=== PATIENT | male | born 1970 | race Caucasian/White ===

== ENCOUNTER → 2023-06-01 09:39 | Outpatient (CLI) | payer OTHER, SELFPAY ==
[2023-06-01 10:58] LABS: Add Manual Diff / Slide Review NO; Basophils Absolute Auto 100 /uL (0-100); Basophils Percent Auto 1.1 % (0-2); Eosinophils Absolute Auto 1000 /uL (0-450); Eosinophils Percent Auto 13.3 % (2-4); Hemoglobin 13.9 g/dL (13.5-17.5); Lymphocytes Absolute Auto 2100 /uL (1100-4500); Lymphocytes Percent Auto 29.6 % (25-40); Mean Corpuscular HGB Conc 34.8 % (30-36); Mean Corpuscular Hemoglobin 29.9 PG (26-34); Mean Corpuscular Volume 85.8 fL (80-100); Monocytes Absolute Auto 500 /uL (0-900); Monocytes Percent Auto 6.4 % (3-14); Neutrophils Absolute Auto 3600 /uL (1500-7000); Neutrophils Percent Auto 49.6 % (50-75); Platelet Count 276 X10^3/uL (150-400); Red Blood Cell Count 4.67 X10^6/uL (4.5-5.9); Red Cell Distribution Width 14.1 % (11.6-14.8); White Blood Cell Count 7.2 X10^3/uL (4.5-11.0)
[2023-06-01 11:13] LABS: Alanine Aminotransferase 34 IU/L (<50); Albumin 4.3 g/dL (3.5-5.0); Albumin Globulin Ratio 1.6 (1.0-2.8); Alkaline Phosphatase 61 U/L (38-126); Aspartate Aminotransferase 33 IU/L (17-59); BUN Creatinine Ratio 27.5 (6-22); Bilirubin Total 0.5 mg/dL (0.2-1.3); Blood Urea Nitrogen 28 mg/dL (9-20); Calcium 9.1 mg/dL (8.4-10.2); Carbon Dioxide 30 mmol/L (22-32); Chloride 104 mmol/L (98-107); Cholesterol 209 mg/dL (140-199); Estimated Glomerular Filt Rate > 60 mL/min (>60); Globulin 2.7 g/dL (1.7-4.1); Glucose 93 mg/dL (70-100); HDL Cholesterol 54 mg/dL (40-60); HEMOLYSIS < 15 (0-50); LDL Cholesterol Calculated 133 mg/dL (<100); Potassium 4.6 mmol/L (3.4-5.1); Sodium 140 mmol/L (137-145); Triglycerides 109 mg/dL (35-150)
[2023-06-01 11:47] LABS: Prostate Specific Antigen 1.49 ng/mL (0.10-4.00)
[2023-06-02 06:33] LABS: Labcorp Hemoglobin (Hb) A1c 5.7 % (4.8-5.6)
== END ==
PROVIDERS: Family Provider Internal Medicine; PCP Family Medicine; Referring Provider Family Medicine; Visit Provider Family Medicine
DX: Z00.00 Encounter for general adult medical examination without abnormal findings (principal); J45.909 Unspecified asthma, uncomplicated; Z83.3 Family history of diabetes mellitus
CPT/HCPCS: 36415; 80053; 80061; 83036; 84153; 85025

== ENCOUNTER 2023-10-19 12:38 | Day surgery (SDC) | payer OTHER, SELFPAY ==
[2023-10-19 12:49] VITALS: BP 158/86; PULSE 70; RESP 16; TEMP 36.4; O2SAT 100; BMI 31.0
[2023-10-19] MEDS: LACTATED RINGERS 1,000 ML 150 ML IV (13:02)
--- NOTE | 2023-10-19 14:02 | P.HP_ITS ---
History of Present Illness History of Present Illness Date Patient Seen: 10/19/23 Time Patient Seen: 14:02 Chief complaint: Screening Colonoscopy Narrative: Alfredo is a 53-year-old man who is here for colonoscopy. He has never had 1 before. No family history of colon cancer. [facility] Medical History Asthma (~1995) Borderline hyperlipidemia Chicken pox Family history of diabetes mellitus Fractures (~1983) Mild anemia Pre-diabetes Shoulder pain (~2008) Well adult exam Surgical History Anesthesia Polyp, nasal sinus (~2004) Family History Father Diabetes mellitus Hypertension Mother Mental health problem Brother Congestive heart failure Sarcoidosis Grandfather History of heart disease Grandfather Cancer Diabetes mellitus History of heart disease Social History household members: spouse Smoking Status: Never smoker alcohol intake: current Meds Home Medications and Allergies Home Medications Medication Instructions Recorded Confirmed Type albuterol sulfate 90 mcg/actuation 2 puff inhalation Q4-6H #6.7 grams 06/11/23 10/19/23 Rx aerosol inhaler ciclesonide 80 mcg/actuation 1 puff inhalation BID #6.1 grams 06/11/23 10/19/23 Rx aerosol inhaler (Alvesco) montelukast 10 mg tablet 10 mg PO DAILY #90 tabs 06/12/23 10/19/23 Rx (Singulair) Allergies Allergy/AdvReac Type Severity Reaction Status Date / Time No Known Drug Allergies Allergy Unverified 06/01/23 08:59 Exam Vital Signs (past 8 hours): - 10/19/23 12:49 Temperature 97.5 F L Pulse Rate 70 Respiratory Rate 16 Blood Pressure 158/86 H Pulse Oximetry 100 Oxygen Delivery Method Room Air Oxygen Delivery Method Room Air Const General: healthy appearing Resp Effort & Inspection: normal respiratory effort Assessment & Plan Assessment and plan (1) Colon cancer screening: Status: Acute Plan Alfredo is a 53-year-old man who is here for colonoscopy for colon cancer screening. We reviewed the risks and benefits and he would like to proceed.
--- NOTE | 2023-10-19 15:12 | PM.OP.COLON ---
Operative Date/Time/Diagnoses Date of procedure: 10/19/23 Time of procedure: 15:12 Pre-op diagnosis: Colon cancer screening Post-op diagnosis: same Procedure & Clinicians Study performed: Colonoscopy Same procedure as scheduled: Yes Surgeon: Ezekiel Anders Procedure Notes Procedure in detail: Surgeon: Ezekiel Anders MD Anesthesia: Jorge L Mann CRNA Procedure: The patient was brought to the endoscopy suite, placed in left lateral decubitus position. The patient was connected to monitoring devices. A time-out was performed. Sedation was administered. Once the patient was adequately sedated, a digital rectal exam was performed and was normal. The scope was then inserted and advanced to the cecum where the appendiceal orifice was identified and photographed. The scope was then slowly withdrawn over greater than 6 minutes. The mucosa was thoroughly inspected. No abnormalities were found. The scope was retroflexed in the rectum. No abnormalities were seen. The scope was straightened and removed. The patient was awakened and brought to recovery. Scope withdrawal time: 6 minutes Sedation time: 15 minutes EBL: 0 Findings: Normal colon Post-procedure Recommendations: Colonoscopy in 10 years Disposition: PACU
[2023-10-19 15:14] VITALS: BP 97/65; PULSE 71; RESP 16; O2SAT 98
[2023-10-19 15:19] VITALS: BP 99/59; PULSE 69; RESP 16; TEMP 36.2; O2SAT 98
[2023-10-19 15:24] VITALS: BP 98/66; PULSE 68; RESP 16; TEMP 36.2; O2SAT 98
[2023-10-19 15:28] VITALS: BP 99/66; PULSE 74; RESP 16; TEMP 36.8; O2SAT 98
== END 2023-10-19 15:41 | disposition home or self-care (01) ==
PROVIDERS: Family Provider Internal Medicine; PCP Family Medicine; Referring Provider Surgery; Visit Provider Surgery
PROC: 0DJD8ZZ Inspection of Lower Intestinal Tract, Via Natural or Artificial Opening Endoscopic (ICD-10-PCS; CPT 45378; principal; 2023-10-19 13:45)
DX: Z12.11 Encounter for screening for malignant neoplasm of colon (principal)
CPT/HCPCS: 45378; J2704

== ENCOUNTER → 2024-07-12 07:21 | Outpatient (CLI) | payer OTHER, SELFPAY ==
[2024-07-12 10:32] LABS: HEMOLYSIS < 15 (0-50); Iron 117 ug/dL (49-181)
[2024-07-12 10:37] LABS: Alanine Aminotransferase 24 IU/L (<50); Albumin 4.2 g/dL (3.5-5.0); Albumin Globulin Ratio 1.8 (1.0-2.8); Alkaline Phosphatase 53 U/L (38-126); Aspartate Aminotransferase 30 IU/L (17-59); BUN Creatinine Ratio 25.5 (6-22); Bilirubin Total 0.7 mg/dL (0.2-1.3); Blood Urea Nitrogen 27 mg/dL (9-20); Calcium 9.5 mg/dL (8.4-10.2); Carbon Dioxide 28 mmol/L (22-32); Chloride 104 mmol/L (98-107); Cholesterol 201 mg/dL (140-199); Estimated Glomerular Filt Rate > 60 mL/min (>60); Globulin 2.4 g/dL (1.7-4.1); Glucose 96 mg/dL (70-100); HDL Cholesterol 49 mg/dL (40-60); HEMOLYSIS < 15 (0-50); LDL Cholesterol Calculated 130 mg/dL (<100); Potassium 4.4 mmol/L (3.4-5.1); Sodium 139 mmol/L (137-145); Total Protein 6.6 g/dL (6.3-8.2); Triglycerides 112 mg/dL (35-150)
[2024-07-12 10:38] LABS: Hemoglobin A1C% w Est Avg Glu 5.5 % (4.0-6.0)
[2024-07-12 10:44] LABS: Percent Iron Saturation 37 % (20-50); Total Iron Binding Capacity 319 ug/dL (261-462); Transferrin 249 mg/dL (206-381)
[2024-07-12 11:05] LABS: Prostate Specific Antigen 1.16 ng/mL (0.10-4.00)
[2024-07-12 11:22] LABS: Vitamin B12 642 pg/mL (239-931)
== END ==
PROVIDERS: Family Provider Internal Medicine; PCP Family Medicine; Referring Provider Family Medicine; Visit Provider Family Medicine
DX: Z00.00 Encounter for general adult medical examination without abnormal findings (principal); R73.03 Prediabetes; E78.5 Hyperlipidemia, unspecified; D64.9 Anemia, unspecified
CPT/HCPCS: 36415; 80053; 80061; 82607; 83036; 83540; 83550; 84153

== ENCOUNTER → 2025-07-24 13:57 | Outpatient (CLI) | payer OTHER, SELFPAY ==
[2025-07-24 15:43] LABS: Add Manual Diff / Slide Review NO; Hematocrit 39.6 % (41-53); Hemoglobin 13.6 g/dL (13.5-17.5); Lymphocytes Absolute Auto 2200 /uL (1100-4500); Mean Corpuscular HGB Conc 34.3 % (30-36); Mean Corpuscular Hemoglobin 29.6 PG (26-34); Mean Corpuscular Volume 86.3 fL (80-100); Platelet Count 227 X10^3/uL (150-400)
[2025-07-24 15:57] LABS: Hemoglobin A1C% w Est Avg Glu 5.5 % (4.0-6.0)
[2025-07-24 16:16] LABS: Alanine Aminotransferase 30 IU/L (<50); Albumin 4.2 g/dL (3.5-5.0); Albumin Globulin Ratio 1.6 (1.0-2.8); Alkaline Phosphatase 59 U/L (38-126); Blood Urea Nitrogen 21 mg/dL (9-20); Calcium 9.2 mg/dL (8.4-10.2); Carbon Dioxide 28 mmol/L (22-32); Chloride 103 mmol/L (98-107); Cholesterol 221 mg/dL (140-199); Estimated Glomerular Filt Rate > 60 mL/min (>60); Globulin 2.6 g/dL (1.7-4.1); Glucose 74 mg/dL (70-99); HDL Cholesterol 59 mg/dL (40-60); HEMOLYSIS < 15 (0-50); Potassium 4.1 mmol/L (3.4-5.1); Sodium 138 mmol/L (137-145); Total Protein 6.8 g/dL (6.3-8.2); Triglycerides 172 mg/dL (35-150)
== END ==
PROVIDERS: Family Provider Internal Medicine; PCP Family Medicine; Referring Provider Family Medicine; Visit Provider Family Medicine
DX: D64.9 Anemia, unspecified (principal); E78.5 Hyperlipidemia, unspecified; R73.03 Prediabetes
CPT/HCPCS: 36415; 80053; 80061; 83036; 85025